=== PATIENT | female | born 1940 | race Caucasian/White ===

== ENCOUNTER 2018-02-17 12:48 | Day surgery (SDC) | payer OTHER ==
[2018-02-17] MEDS ORDERED: KENALOG INJ 40 MG IM ONE (13:29)
[2018-02-17] MEDS ORDERED: XYLOCAINE 1 % (PLAIN) ONE (13:29)
[2018-02-17] MEDS ORDERED: MARCAINE 0.25% INJ ONE (13:30)
--- NOTE | 2018-02-17 13:30 | DR.UPDATE ---
H&P Update History and Physical Update: History and Physical reviewed and patient examined. Changes noted: NO Yes with the following:Agree with H&P from Dr Conn. Will proceed with L5-S1 lacho left under flouro
[2018-02-17 14:04] VITALS: BP 147/71
== END 2018-02-17 13:57 | disposition home or self-care (01) | DRG 552 ==
LOC: SURG1 12:48
PROVIDERS: ATTEND Orthopaedic Surgery
PROC: 3E0R3BZ Introduction of Anesthetic Agent into Spinal Canal, Percutaneous Approach (ICD-10-PCS; principal; 2018-02-17 12:45)
PROC: 3E0R33Z Introduction of Anti-inflammatory into Spinal Canal, Percutaneous Approach (ICD-10-PCS; principal; 2018-02-17 12:45)
DX: M54.17 Radiculopathy, lumbosacral region (principal)
CPT/HCPCS: 62323; 76000; A4222; S0020; J2001; J3301